=== PATIENT | male | born 1990 | race Two or more races ===

== ENCOUNTER 2024-05-25 11:41 | Emergency (ER) | payer MEDICAID ==
[~2024-05-25] VITALS: Ht 170.2 cm; Wt 70.3 kg
[2024-05-25] MEDS ORDERED: NALO4SPR BNOSTRILS (14:19)
[2024-05-25 14:39] VITALS: BP 118/85; TEMP 98; O2SAT 100
== END 2024-05-25 14:39 | disposition home or self-care (01) ==
LOC: ER 11:49
DX: T40.2X1A Poisoning by other opioids, accidental (unintentional), initial encounter (principal); Y92.89 Other specified places as the place of occurrence of the external cause